=== PATIENT | female | born 1945 | race Two or more races ===

== ENCOUNTER 2021-08-02 14:33 | Inpatient (IN) | payer MEDICAID, MEDICARE, OTHER, SELFPAY ==
[~2021-08-02] VITALS: Ht 147.3 cm; Wt 62.6 kg
--- NOTE | 2021-08-02 14:36 | NUR ---
[id number]
--- NOTE | 2021-08-02 14:46 | NUR ---
BIB EMS WITH CHIEF C/O COUGH X1.5-2 WEEKS. THIS MORNING PATIENT STARTED EXPERIENCING DIZZINESS AND SOB. DENIES SICK CONTACTS. NO INTERVENTIONS AND VSS EN ROUTE. UPON ASSESSMENT PATIENT DENIES DIZZINESS, REPORTS SOB, RR 22-35, RA SATURATION 86%, PLACED ON 2 LPM NC AND O2 INCREASED TO 97%, OTHER VSS, GRANDSON AT BEDSIDE TO TRANSLATE, CALL LIGHT WITHIN REACH.
[2021-08-02] MEDS ORDERED: SODIUM CHLORIDE FLUSH 10ML SYR IVF ONE (15:00)
[2021-08-02 15:14] LABS: BASOPHILS % (AUTO) 1 % (0-1); EOSINOPHILS % (AUTO) 2 % (1-7); LYMPHOCYTES % (AUTO) 18 % (22-44); MEAN CORPUSCULAR HEMOGLOBIN 32.8 pg (27.0-34.8); MEAN CORPUSCULAR HGB CONC 34.2 g/dL (32.4-35.8); MEAN PLATELET VOLUME 6.2 fL (7.4-10.4); MONOCYTES % (AUTO) 7 % (2-9); NEUTROPHILS % (AUTO) 73 % (42-75); PLATELET COUNT 284 x10^3/uL (130-400); RED BLOOD COUNT 4.49 x10^6/uL (3.82-5.3); RED CELL DISTRIBUTION WIDTH 13.6 % (9.6-15.2)
[2021-08-02 15:24] LABS: ALBUMIN 2.9 g/dL (3.4-5.0); ANION GAP 8 mmol/L (5-15); CALCIUM 8.4 mg/dL (8.5-10.1); CHLORIDE 101 mmol/L (98-107); CREATININE 0.86 mg/dL (0.55-1.02)
[2021-08-02 15:28] LABS: TROPONIN I < 0.015 ng/mL (0.000-0.045)
[2021-08-02] MEDS ORDERED: ALBUTEROL/IPRATROPIUM 2.5MG/0.5MG, 3 ML NPPB ONE (16:00)
[2021-08-02] MEDS ORDERED: ALBUTEROL/IPRATROPIUM 2.5MG/0.5MG, 3 ML ONE (16:02)
--- NOTE | 2021-08-02 16:07 | NUR ---
BREATHING TREATMENT STARTED, PATIENT CONNECTED TO MONITOR, GRANDSON AT BEDSIDE.
--- NOTE | 2021-08-02 16:18 | NUR ---
PATIENT TOLERATED BREATHING TREATMENT WELL, REPORTS SHE IS FEELING "BETTER." O2 SATURATION RA 89-91%, PLACED ON 2 LPM NC, O2 SATURATION UP TO 96%.
--- NOTE | 2021-08-02 17:11 | NUR ---
CHECKED PATIENT'S RA SAT PER ERMD REQUEST, DROPPED TO 88%, ERMD NOTIFIED, RAPID COVID COLLECTED AND WALKED TO LAB.
[2021-08-02] MEDS ORDERED: ACETAMINOPHEN 325 MG TABLET PO PRN (17:30)
[2021-08-02] MEDS ORDERED: PROMETHAZINE 25 MG/ML, 1ML IM PRN (17:30)
[2021-08-02] MEDS ORDERED: BISACODYL 10 MG SUPP PR PRN (17:30)
[2021-08-02] MEDS ORDERED: OXYcodone IR 5MG TABLET PO PRN (17:30)
[2021-08-02] MEDS ORDERED: ONDANSETRON 2MG/ML, 2ML IVPush PRN (17:30)
[2021-08-02] MEDS ORDERED: DOCUSATE 100 MG CAPSULE PO PRN (17:30)
[2021-08-02] MEDS ORDERED: POLYETHYLENE GLYCOL 17 GM PACKET PO PRN (17:30)
[2021-08-02] MEDS ORDERED: ONDANSETRON ODT 4 MG PO PRN (17:30)
[2021-08-02] MEDS ORDERED: hydrALAzine 20 MG/ML, 1ML IVPush PRN (17:30)
[2021-08-02] MEDS ORDERED: FUROSEMIDE 20 MG/2 ML IV ONE (18:00)
[2021-08-02] MEDS ORDERED: ENOXAPARIN 40 MG/0.4 ML ONE (18:31)
[2021-08-02] MEDS ORDERED: FUROSEMIDE 20 MG/2 ML ONE (18:32)
[2021-08-02] MEDS: ENOXAPARIN 40 MG/0.4 ML SQ SCH (18:34)
--- NOTE | 2021-08-02 18:34 | NUR ---
PATIENT MEDICATED PER eMAR. GERARDN, CONNECTED TO MONITOR, VSS, FAMILY AT BEDSIDE, CALL LIGHT WITHIN REACH. PATIENT'S GRANDSON HELPED AMBULATE PATIENT TO BATHROOM, PATIENT STEADY AND HAS OXYGEN TANK.
--- NOTE | 2021-08-02 18:56 | NUR ---
REPORT GIVEN TO MAN MALAGON FOR TRANSFER OF PATIENT CARE.
--- NOTE | 2021-08-02 18:59 | NUR ---
RECEIVED REPORT FROM AKI CONWAY. TRANSFER OF CARE.
--- NOTE | 2021-08-02 19:21 | NUR ---
PT BACK FROM BATHROOM. AMBULATED TO AN BACK WITH STEADY GAIT. REATTACHED TO ALL MONITORS, VSS. [facility] BED IN LOW, RAILS ENGAGED, CALL LIGHT ON LAP. CHRISTINA AT BEDSIDE.
--- NOTE | 2021-08-02 19:42 | NUR ---
GAVE REPORT TO EMETERIO CONWAY
[2021-08-02 21:03] VITALS: BP 100/69
[2021-08-03 02:13] VITALS: BP 108/70
[2021-08-03 03:47] LABS: BASOPHILS % (AUTO) 1 % (0-1); EOSINOPHILS % (AUTO) 2 % (1-7); LYMPHOCYTES % (AUTO) 23 % (22-44); MEAN CORPUSCULAR HEMOGLOBIN 33.2 pg (27.0-34.8); MEAN CORPUSCULAR HGB CONC 34.4 g/dL (32.4-35.8); MEAN PLATELET VOLUME 6.5 fL (7.4-10.4); MONOCYTES % (AUTO) 8 % (2-9); NEUTROPHILS % (AUTO) 66 % (42-75); PLATELET COUNT 288 x10^3/uL (130-400); RED BLOOD COUNT 4.49 x10^6/uL (3.82-5.3); RED CELL DISTRIBUTION WIDTH 13.8 % (9.6-15.2)
[2021-08-03 03:56] LABS: CHLORIDE 100 mmol/L (98-107)
[2021-08-03 04:11] LABS: ALANINE AMINOTRANSFERASE 24 U/L (12-78); ALBUMIN 2.9 g/dL (3.4-5.0); ALKALINE PHOSPHATASE 88 U/L (45-117); ANION GAP 8 mmol/L (5-15); CALCIUM 8.1 mg/dL (8.5-10.1); CHOL/HDL RATIO 3.8; CHOLESTEROL, TOTAL 149 mg/dL (140-239); CREATININE 0.79 mg/dL (0.55-1.02); HDL CHOL % 26 % (28-40); HDL CHOLESTEROL (DIRECT) 39 mg/dL (40-60); LDL CHOLESTEROL,CALCULATED 77 mg/dL (54-169); TOTAL PROTEIN 7.5 g/dL (6.4-8.2); TRIGLYCERIDES 165 mg/dL (50-200); VLDL CHOLESTEROL 33 mg/dL (0-25)
[2021-08-03 08:34] VITALS: BP 107/73
[2021-08-03] MEDS ORDERED: ALEN70TA77 PO (10:08)
[2021-08-03] MEDS: LOVASTATIN 20 MG TABLET PO SCH (11:11)
[2021-08-03 11:15] VITALS: BP 119/81
[2021-08-03 12:27] VITALS: BP_SYST 110
[2021-08-03] MEDS: FUROSEMIDE 20 MG/2 ML IV SCH (18:20)
[2021-08-03] MEDS: ENOXAPARIN 40 MG/0.4 ML SQ SCH (18:21)
[2021-08-03] MEDS: GABAPENTIN 100 MG CAPSULE PO SCH (20:36)
[2021-08-03 20:37] VITALS: BP 101/70
[2021-08-04 01:42] VITALS: BP 105/73
[2021-08-04 06:32] LABS: BASOPHILS % (AUTO) 1 % (0-1); EOSINOPHILS % (AUTO) 1 % (1-7); LYMPHOCYTES % (AUTO) 20 % (22-44); MEAN CORPUSCULAR HEMOGLOBIN 32.8 pg (27.0-34.8); MEAN CORPUSCULAR HGB CONC 34.3 g/dL (32.4-35.8); MEAN PLATELET VOLUME 6.6 fL (7.4-10.4); MONOCYTES % (AUTO) 7 % (2-9); NEUTROPHILS % (AUTO) 71 % (42-75); PLATELET COUNT 292 x10^3/uL (130-400); RED BLOOD COUNT 4.49 x10^6/uL (3.82-5.3); RED CELL DISTRIBUTION WIDTH 13.8 % (9.6-15.2)
[2021-08-04 06:39] LABS: CHLORIDE 95 mmol/L (98-107)
[2021-08-04 06:53] LABS: ALANINE AMINOTRANSFERASE 22 U/L (12-78); ALBUMIN 2.7 g/dL (3.4-5.0); ALKALINE PHOSPHATASE 86 U/L (45-117); BILIRUBIN,TOTAL 1.5 mg/dL (0.2-1.0); CALCIUM 8.2 mg/dL (8.5-10.1); CREATININE 0.69 mg/dL (0.55-1.02); TOTAL PROTEIN 7.2 g/dL (6.4-8.2)
[2021-08-04 07:34] VITALS: BP 91/62
[2021-08-04 07:58] LABS: ANION GAP 9 mmol/L (5-15)
[2021-08-04] MEDS ORDERED: OMNIPAQUE 350 MG/ML, 75ML BOTTLE ONE (08:31)
[2021-08-04] MEDS: FUROSEMIDE 20 MG/2 ML IV SCH ×2 (09:12→17:45)
[2021-08-04] MEDS: LOVASTATIN 20 MG TABLET PO SCH (09:12)
[2021-08-04 13:50] VITALS: BP 119/75
[2021-08-04] MEDS: ENOXAPARIN 40 MG/0.4 ML SQ SCH (17:45)
[2021-08-04 19:33] VITALS: BP 102/70
[2021-08-04] MEDS: GABAPENTIN 100 MG CAPSULE PO SCH (21:16)
[2021-08-05 01:57] VITALS: BP 109/76
[2021-08-05 07:13] VITALS: BP 96/57
[2021-08-05] MEDS: LOVASTATIN 20 MG TABLET PO SCH (07:47)
[2021-08-05] MEDS: FUROSEMIDE 20 MG/2 ML IV SCH (07:47)
[2021-08-05 13:22] VITALS: BP 104/72
[2021-08-05] MEDS ORDERED: LOVA20TA2 PO (13:28)
[2021-08-05] MEDS ORDERED: FURO-93 PO (14:58)
[2021-08-05] MEDS ORDERED: POTA10TA PO (14:59)
== END 2021-08-05 15:00 | disposition home or self-care (01) | DRG 189 ==
LOC: ED 19:18 → EDIP 20:07 → 4WST 20:16
PROVIDERS: ADMIT Internal Medicine; ATTEND Hospitalist
DX: J96.01 Acute respiratory failure with hypoxia (principal); J81.1 Chronic pulmonary edema; J84.9 Interstitial pulmonary disease, unspecified; E78.5 Hyperlipidemia, unspecified; I27.20 Pulmonary hypertension, unspecified; I10 Essential (primary) hypertension; I07.1 Rheumatic tricuspid insufficiency; R73.03 Prediabetes; Z20.822 Contact with and (suspected) exposure to COVID-19; Z79.899 Other long term (current) drug therapy
CPT/HCPCS: 36415; 84145; 96374; 99285; C8929; 71045; 71275; 80048; 80053; 80061; 82040; 83036; 83735; 83880; 84100; 84443; 84484; 85025; 85379; 87635; 93005; G0378; J1650; Q9957; Q9967; J1940